=== PATIENT | male | born 1950 | race Caucasian/White ===

== ENCOUNTER 2019-08-15 09:49 | Observation (INO) | payer MEDICARE ==
[2019-08-15 10:13] LABS: ABS Eosinophils 0.1 10^3/ul (0-0.6); ABS Lymphocytes 2.1 10^3/ul (1.0-4.8); ABS Monocytes 0.7 10^3/ul (0-0.8); ABS Neutrophils 2.2 10^3/ul (1.5-7.7); Eosinophil % 2.5 %; Hematocrit 43 % (42-52); Hemoglobin 14.9 g/dL (14.0-18.0); Lymphocyte % 41.4 %; Mean Corpuscular HGB Conc 35 g/dL (31-36); Mean Corpuscular Hemoglobin 31 pg (27-31); Mean Corpuscular Volume 91 fL (80-94); Mean Platelet Volume 9.2 fL (7.4-10.4); Nucleated Red Blood Cells % 0.1; Platelet Count 177 10^3/uL (150-450); Red Blood Count 4.76 10^6 /uL (4.18-5.48); Red Cell Distribution Width 14 % (10-15); White Blood Count 5.2 10^3/uL (3.5-10.8)
[2019-08-15 10:32] LABS: Albumin 4.4 g/dL (3.2-5.2); Albumin/Globulin Ratio 2.2 (1-3); BUN/Creatinine Ratio 16.8 (8-20); Calcium 9.4 mg/dL (8.6-10.3); EGFR African American 94.8 (>60); EGFR Non-African American 78.4 (>60); Potassium 4.2 mmol/L (3.5-5.0); Total Bilirubin 0.7 mg/dL (0.2-1.0); Total Protein 6.4 g/dL (6.4-8.9)
[2019-08-15 10:34] LABS: Troponin I 0.01 ng/mL (<0.04)
[2019-08-15 10:43] LABS: INR 0.95 (0.82-1.09)
--- NOTE | 2019-08-15 10:59 | ED ---
HPI Chest Pain - HPI Summary HPI Summary: Pt is a 69 y/o M presenting to the ED with a chief complaint of chest pain initially onset in the middle of the night. He states he was having a dream that someone was breaking into his house, and a door was slammed into his chest. He was woken up by this sudden pressure on his chest. He fell back asleep , and later in the morning around 0730 when he was going up stairs, he experienced leg weakness, lightheadedness, dizziness, more SOB than usual, and slight anxiety on the way here. He denies diaphoresis, abd pain, N/V. He notes he has been more fatigued than usual when doing winter prep and he has noticed more leg cramping than usual. He also notes that he took two regular ASA this morning and increased recent stress from a lawsuit he is involved in. - History of Current Complaint Chief Complaint: EDChestPainROMI Time Seen by Provider: 08/15/19 10:11 Hx Obtained From: Patient Onset/Duration: Started Hours Ago, Still Present Timing: Constant, Lasting Hours Initial Severity: Moderate Current Severity: Mild Pain Intensity: 2 Pain Scale Used: 0-10 Numeric Chest Pain Location: Diffuse Chest Pain Radiates: No Character: Pressure/Squeezing Aggravating Factor(s): Nothing Alleviating Factor(s): Nothing Associated Signs and Symptoms: Positive: Chest Pain, Anxiety, Recent Stress, Weakness, Dizziness, Shortness of Breath, Lightheadedness. Negative: Diaphoresis, Nausea, Abdominal Pain, Vomiting Related History: Obesity - Allergy/Home Medications Allergies/Adverse Reactions: Allergies Allergy/AdvReac Type Severity Reaction Status Date / Time No Known Allergies Allergy Verified 08/15/19 09:57 Home Medications: Home Medications Carvedilol TAB* [Coreg TAB*] 25 mg PO BID 08/15/19 [History Confirmed 08/15/19] Levothyroxine TAB* [Synthroid TAB*] 50 mcg PO BID 08/15/19 [History Confirmed ] Thyroid TAB* [Thyroid TAB 30 MG*] 30 mg PO BID 08/15/19 [History Confirmed 08/15] metFORMIN* [Glucophage 500 MG TAB *] 500 mg PO BID 08/15/19 [History Confirmed 08/15/19] PMH/Surg Hx/FS Hx/Imm Hx Previously Healthy: Yes Endocrine/Hematology History: Reports: Hx Diabetes - NIDDM, Hx Thyroid Disease Cardiovascular History: Reports: Hx Hypercholesterolemia, Hx Hypertension GI History: Reports: Other GI Disorders - hernia surg in past - Surgical History Surgery Procedure, Year, and Place: HERNIA SURGERY RIGHT SIDE - AGE 42014 Infectious Disease History: No Infectious Disease History: Denies: Traveled Outside the [place] in Last 30 Days - Family History Known Family History: Negative: Renal Disease - Social History Alcohol Use: None Hx Substance Use: No Substance Use Type: Reports: None Hx Tobacco Use: Yes Smoking Status (MU): Former Smoker - 40+ yrs ago Review of Systems Positive: Fatigue. Negative: Skin Diaphoresis Positive: Chest Pain Positive: Shortness Of Breath Negative: Abdominal Pain, Vomiting, Nausea Neurological: Other - lightheadedness, dizziness Positive: Weakness Positive: Anxious All Other Systems Reviewed And Are Negative: Yes Physical Exam - Summary Physical Exam Summary: Constitutional: Well-developed, obese, Alert. (-) Distressed Skin: Warm, Dry HENT: Normocephalic; Atraumatic Eyes: Conjunctiva normal Neck: Musculoskeletal ROM normal neck. (-) JVD, (-) Stridor, (-) Tracheal deviation Cardio: Rhythm regular, rate normal, Heart sounds normal; Intact distal pulses; The pedal pulses are 2+ and symmetric. Radial pulses are 2+ and symmetric. Pulmonary/Chest wall: Effort normal. (-) Respiratory distress, (-) Wheezes, (-) Rales Abd: Soft, (-) tenderness, (-) Distension, (-) Guarding, (-) Rebound Musculoskeletal: (-) Edema Neuro: Alert, Oriented x3 Psych: Mood and affect Normal Triage Information Reviewed: Yes Vital Signs On Initial Exam: Initial Vitals Temp Pulse Resp BP Pulse Ox 97.7 F 69 20 131/84 98 08/15/19 09:54 08/15/19 09:54 08/15/19 09:54 08/15/19 09:54 08/15/19 09:54 Vital Signs Reviewed: Yes Procedures - Sedation Patient Received Moderate/Deep Sedation with Procedure: No Diagnostics - Vital Signs Vital Signs Temp Pulse Resp BP Pulse Ox 08/15/19 10:05 67 13 115/84 96 08/15/19 10:03 67 96 08/15/19 09:54 97.7 F 69 20 131/84 98 - Laboratory Lab Results: Lab Results 08/15/19 08/15/19 08/15/19 Range/Units 10:04 10:05 10:05 WBC 5.2 (3.5-10.8) 10^3/uL RBC 4.76 (4.18-5.48) 10^6 /uL Hgb 14.9 (14.0-18.0) g/dL Hct 43 (42-52) % MCV 91 (80-94) fL MCH 31 (27-31) pg MCHC 35 (31-36) g/dL RDW 14 (10-15) % Plt Count 177 (150-450) 10^3/uL MPV 9.2 (7.4-10.4) fL Neut % (Auto) 43.0 % Lymph % (Auto) 41.4 % [place] % (Auto) 12.7 % Eos % (Auto) 2.5 % Baso % (Auto) 0.4 % Absolute Neuts (auto) 2.2 (1.5-7.7) 10^3/ul Absolute Lymphs (auto) 2.1 (1.0-4.8) 10^3/ul Absolute Monos (auto) 0.7 (0-0.8) 10^3/ul Absolute Eos (auto) 0.1 (0-0.6) 10^3/ul Absolute Basos (auto) 0.0 (0-0.2) 10^3/ul Absolute Nucleated RBC 0.0 10^3/ul Nucleated RBC % 0.1 INR (Anticoag Therapy) 0.95 (0.82-1.09) Sodium 139 (135-145) mmol/L Potassium 4.2 (3.5-5.0) mmol/L Chloride 103 (101-111) mmol/L Carbon Dioxide 29 (22-32) mmol/L Anion Gap 7 (2-11) mmol/L BUN 16 (6-24) mg/dL Creatinine 0.95 (0.67-1.17) mg/dL Est GFR ( Amer) 94.8 (>60) Est GFR (Non-Af Amer) 78.4 (>60) BUN/Creatinine Ratio 16.8 (8-20) Glucose 192 H (70-100) mg/dL Calcium 9.4 (8.6-10.3) mg/dL Total Bilirubin 0.70 (0.2-1.0) mg/dL AST 21 (13-39) U/L ALT 43 (7-52) U/L Alkaline Phosphatase 74 (34-104) U/L Troponin I 0.01 (<0.04) ng/mL Total Protein 6.4 (6.4-8.9) g/dL Albumin 4.4 (3.2-5.2) g/dL Globulin 2.0 (2-4) g/dL Albumin/Globulin Ratio 2.2 (1-3) Result Diagrams: 08/15/19 10:04 08/15/19 10:05 Lab Statement: Any lab studies that have been ordered have been reviewed, and results considered in the medical decision making process. - Radiology CXR Radiology Interpretation Completed By: Radiologist Summary of Radiographic Findings: HYPERINFLATION, CONSISTENT WITH COPD. NO ACTIVE CARDIOPULMONARY DISEASE. ED physician has reviewed this report. - EKG 0949 Cardiac Rate: NL - 66bpm EKG Rhythm: Sinus Rhythm ST Segment: Normal Ectopy: None Summary of EKG Findings: EKG at 0949 shows NSR at 66bpm with no STEMI. ED physician has reviewed and interpreted this report. Chest Pain Course/Dx - Course Course Of Treatment: Pt is a 69 y/o M presenting to the ED with a chief complaint of chest pain initially onset in the middle of the night. He was woken up by this sudden pressure on his chest. He fell back asleep, and later in the morning around 0730 when he was going up stairs, he experienced leg weakness, lightheadedness, dizziness, more SOB than usual, and slight anxiety on the way here. He denies diaphoresis, abd pain, N/V. He notes he has been more fatigued than usual when doing winter prep and he has noticed more leg cramping than usual. He also notes that he took two regular ASA this morning and increased recent stress from a lawsuit he is involved in. Pt is obese on physical exam, otherwise nml. EKG at 0949 shows NSR at 66bpm with no STEMI. Pt 's first troponin is 0.01. CXR shows: HYPERINFLATION, CONSISTENT WITH COPD. NO ACTIVE CARDIOPULMONARY DISEASE. Pt's blood glucose is 192. I spoke with Dr. Sosa at 1206 who will be admitting the [place] [facility] [place] dx of [place]. - Diagnoses Provider Diagnoses: Chest pain - Provider Notifications Discussed Care Of Patient With: Huy Sosa Time Discussed With Above Provider: 12:06 Instructed by Provider To: Admit As Inpatient Discharge ED - Sign-Out/Discharge Documenting (check all that apply): Patient Departure - Discharge Plan Condition: Stable Disposition: ADMITTED TO [facility] - Billing Disposition and Condition Condition: STABLE Disposition: Admitted to [facility] - Attestation Statements Document Initiated by Scribe: Yes Documenting Scribe: Nivia Cooper Provider For Whom Kiley is Documenting (Include Credential): Baltazar Clements MD. Scribe Attestation: INivia, scribed for Baltazar Clements MD. on 08/15/19 at 1848. Scribe Documentation Reviewed: Yes Provider Attestation: The documentation as recorded by the [email or web address] accurately reflects the service I personally performed and the decisions made by me, Baltzaar Clements MD. Status of Scribe Document: Viewed Consult Consult: 1206 - I spoke with Dr. Sosa who will be evaluating the pt for admission [place] [facility]
[2019-08-15] MEDS ORDERED: Acetaminophen TAB* 325 MG PO PRN (12:44)
[2019-08-15] MEDS ORDERED: Dextrose 50% VIAL 50 ml IV PUSH PRN (12:44)
[2019-08-15] MEDS ORDERED: Ondansetron INJ* 2 MG/ML VIAL IV PRN (12:44)
--- NOTE | 2019-08-15 13:46 | HP ---
CC: Dr. Merrick Max HISTORY AND PHYSICAL: DATE OF ADMISSION: 08/15/19 PRIMARY CARE PROVIDER: Dr. Merrick Max. CHIEF COMPLAINT: Chest pain. HISTORY OF PRESENTING ILLNESS: This is a 69-year-old male with a past medical history of diabetes type 2, hypothyroidism, hypertension, who now presents to the emergency room because of chest pain. The patient reports that when he was sleeping, he felt he was in an intense dream where he felt like someone was in the house, the electricity was off and there were burglars in the house who got him. Then, when he woke up, he felt as if he had an intense chest pain that lasted few seconds, described as 10/10 chest pain. This was associated with palpitations, diaphoresis. He felt at that same point some shortness of breath , diaphoresis, weakness. There was no nausea, no vomiting. The symptoms lasted for about 4 to 5 seconds, symptoms resolved on their own. Since then, he does feel as if he is slightly weak and lightheaded. He reports that he is having increased amount of stress lately in his life because he is involved in a lawsuit. The patient took aspirin 325 mg tablets 2 tablets prior to coming to the emergency room. The patient has been taking aspirin 325 mg for the past week and a half because of headache as well as left shoulder pain. PAST MEDICAL HISTORY: 1. Diabetes type 2. 2. Hypothyroidism. 3. Hypertension. PAST SURGICAL HISTORY: Hernia repair. HOME MEDICATIONS: Include: 1. Levothyroxine 50 mcg b.i.d. 2. Metformin 500 mg b.i.d. 3. Amlodipine 5 mg b.i.d. 4. Carvedilol 3.125 mg b.i.d. 5. [place] Thyroid 30 mg b.i.d. 6. Lisinopril 20 mg b.i.d. ALLERGIES: No known drug allergies. FAMILY HISTORY: Mother: Lived to age 86, secondary to pneumonia. She also has a history of breast cancer and hyperlipidemia. Father: Stroke. SOCIAL HISTORY: Lives at home with his , Helga. Former smoker, quit about 40 years ago. Minimal alcohol use. REVIEW OF SYSTEMS: The patient has been having occasional headache and left shoulder pain for the past week. Otherwise, a full review of systems was done and is negative, otherwise listed in the HPI. The patient also reports that there was no radiation of the chest pain. PHYSICAL EXAMINATION GENERAL: This is an obese elderly male, lying in an ER stretcher, in no acute distress, well developed, well nourished. VITAL SIGNS: Blood pressure is 123/80, heart rate of 60, respiratory rate of 15 , oxygenation is 96% on room air, temperature of 97.7. HEENT: Pupils are equal, round, and reactive to light. Atraumatic, normocephalic. There is no oropharyngeal erythema. There is no carotid bruit. There is no cervical lymphadenopathy. LUNGS: There is no tachypnea, no use of accessory muscles. Lungs are clear to auscultation without any wheezing, rales, or rhonchi. HEART: There is no chest wall tenderness. Regular rate and rhythm. No murmurs. ABDOMEN: Bowel sounds are normoactive in all 4 quadrants. Abdomen is soft, nontender, nondistended. EXTREMITIES: There is no lower extremity edema, no calf tenderness. NEUROLOGICAL: Alert and oriented x3 with no focal neurological deficits. SKIN: There are no rashes or lesions. DIAGNOSTIC STUDIES/LAB DATA: White count of 5.2, hemoglobin 14.9, hematocrit 43, platelets of 177. INR of 0.95. Sodium 139, potassium 4.2, chloride 103, bicarb 29, BUN 16, creatinine of 0.95, glucose of 192. Alkaline phosphatase of 74. Troponin of 0.01. Albumin of 4.4. The patient also underwent a chest x-ray, which revealed hyperinflation consistent with COPD. There is no active cardiopulmonary disease. EKG shows normal sinus rhythm at a heart rate of 60 with incomplete right bundle - branch block. There is no acute ST elevations or ST depressions noted, there is no EKG available for prior comparison. IMPRESSION AND PLAN: 1. Chest pain: The patient does have risk factors for heart disease, which includes hypertension, diabetes. At this point, we will put the patient under observation, check a second and third troponin, risk stratify the patient with checking of hemoglobin A1c as well as a lipid profile, Check a nuclear stress test tomorrow, the patient reports that he would be unable to walk or run on a treadmill at this point. Continue daily aspirin 325 mg. Check second and third troponin, place the patient on telemetry, check an EKG tomorrow morning. 2. Type 2 diabetes. Continue metformin from home dose. Check hemoglobin A1c. Place on consistent carb diet. Start insulin sliding scale for mealtime coverage. 3. History of hypothyroidism: Check a TSH. Continue the patient's home regimen which is levothyroxine 50 mcg b.i.d. as well as [place] Thyroid 30 mg b.i.d. I discussed with the patient and at bedside regarding unusual dosing. The patient stated this is how his doctor has recommended to take it. 4. Hypertension: Continue amlodipine as well as carvedilol as well as lisinopril from home dose. Monitor the patient's vital signs in the hospital. 5. DVT prophylaxis: The patient is high risk for DVT. We will start the patient on heparin 5000 units subcu b.i.d. 6. Advance care directives. The patient is full code. Healthcare proxy is Helga, phone number is [phone]. Additional management and plan as the hospital course progresses. [id number]/[facility] #: [id number] MTDD
--- NOTE | 2019-08-15 14:53 | PN ---
Hospitalist Progress Note Date of Service: 08/15/19 TSH is 0.02, he has history of hypothyroidism. He is on levothyroxine 50mg BID, and thyroid tabs 30mg BID. At this point will discontinue levothyroxine and thyroid tabs. Obtain TSH and T3, T4 levels tomorrow morning and then determine what dosage to start. Discussed with patient, no history of thyroid cancer, no history of thyroid surgery, or goiter.
[2019-08-15] MEDS: Insulin LISPRO* 1 UNITS UNIT SUBCUT SCH (17:40)
[2019-08-15] MEDS: metFORMIN* 500 MG TAB PO SCH (17:41)
[2019-08-15] MEDS: Lisinopril TAB* 10 MG PO SCH (20:43)
[2019-08-15] MEDS: amLODIPine TAB* 5 MG PO SCH (20:43)
[2019-08-15] MEDS: Carvedilol TAB* 25 MG PO SCH (20:43)
[2019-08-15] MEDS: Heparin VIAL(*) 5000 UNITS/ML VIAL (FIVE THOUSAND) SUBCUT SCH (20:43)
[2019-08-15] MEDS ORDERED: Levothyroxine TAB* 50 MCG TAB PO SCH (21:00)
[2019-08-15] MEDS ORDERED: Carvedilol TAB* 3.125 MG PO SCH (21:00)
[2019-08-15] MEDS ORDERED: Thyroid TAB* 30 MG PO SCH (21:00)
[2019-08-15] MEDS ORDERED: Metformin ER (NF) 500 MG TAB PO SCH (21:00)
[2019-08-15] MEDS ORDERED: Melatonin 3 MG TAB PO SCH (21:00)
[2019-08-16] MEDS: Insulin LISPRO* 1 UNITS UNIT SUBCUT SCH ×2 (08:05→11:52)
[2019-08-16 08:30] LABS: Calcium 9.3 mg/dL (8.6-10.3); Potassium 4.3 mmol/L (3.5-5.0)
[2019-08-16 08:36] LABS: BUN/Creatinine Ratio 16.3 (8-20); EGFR African American 91.5 (>60); EGFR Non-African American 75.6 (>60); HDL Cholesterol 43.2 mg/dL
[2019-08-16] MEDS ORDERED: Aminophylline IV* 25 MG/ML 10 ML VIAL ONE (08:56)
[2019-08-16] MEDS ORDERED: Regadenoson* 0.4 MG/5 ML SYRINGE ONE (08:56)
[2019-08-16 08:59] LABS: TSH (Thyroid Stimulating Horm) 0.04 mcIU/mL (0.34-5.60)
[2019-08-16] MEDS ORDERED: Aspirin TAB* 325 MG PO SCH (09:00)
[2019-08-16 09:01] LABS: Free T4 0.81 ng/dL (0.61-1.12)
[2019-08-16] MEDS: Lisinopril TAB* 10 MG PO SCH (11:35)
[2019-08-16] MEDS: metFORMIN* 500 MG TAB PO SCH (11:36)
[2019-08-16] MEDS: amLODIPine TAB* 5 MG PO SCH (11:36)
[2019-08-16] MEDS: Carvedilol TAB* 25 MG PO SCH (11:37)
[2019-08-16] MEDS: Heparin VIAL(*) 5000 UNITS/ML VIAL (FIVE THOUSAND) SUBCUT SCH (11:37)
[2019-08-16 12:11] VITALS: BP 126/81
--- NOTE | 2019-08-17 00:56 | DS ---
CC: Dr. Max * DISCHARGE SUMMARY: DATE OF ADMISSION: 08/15/19 DATE OF DISCHARGE: 08/16/19 PRIMARY CARE PROVIDER: Dr. Max. PRINCIPAL DIAGNOSIS: Noncardiac chest pain. SECONDARY DIAGNOSES: 1. Type 2 diabetes. 2. Hypothyroidism. 3. Hypertension. DISCHARGE MEDICATIONS: 1. Coreg 25 mg p.o. b.i.d. 2. Metformin 500 mg p.o. b.i.d. 3. Synthroid 50 mcg p.o. b.i.d. 4. Amlodipine 5 mg p.o. b.i.d. 5. [place] Thyroid 30 mg p.o. b.i.d. 6. Lisinopril 20 mg p.o. b.i.d. HOSPITAL COURSE: Mr. Beauchamp is a 69-year-old obese male with history of hypertension and type 2 diabetes, who presented to the emergency room on , with complaints of a very vivid dream where he had severe chest pain. Per the H and P, chest pain occurred when the patient woke up from the dream; however, per the patient on the day of discharge, he did not in fact have chest pain when he woke up but was so scared by the dream and had pain in the dream that he felt he needed to be evaluated. Due to his cardiac risk factors, the patient was admitted and ruled out for an acute coronary syndrome. He underwent a nuclear stress test on the day of discharge which revealed possible small apical infarct versus apical thinning. This was felt to be a low-risk stress test. At this point, the patient was felt to be stable for discharge to home. It was noted that his hemoglobin A1 has increased over the last several months. He agrees to work on diet and exercise. PHYSICAL EXAMINATION: On the day of discharge, the patient was awake, alert, and oriented, sitting up in bed, in no acute distress. Cardiac exam reveals normal S1 and S2 with regular rate and rhythm. Lungs are clear. Abdomen is soft, nontender, nondistended. Musculoskeletal: The patient moves all 4 extremities symmetrically. Skin: Visible areas of skin are warm, dry, and without rash. FOLLOWUP CONCERNS: The patient is being discharged to home today, 08/16/19. ACTIVITY LEVEL: As tolerated. DIET: Heart healthy, diabetic. CONDITION ON DISCHARGE: Stable. FOLLOWUP: The patient to follow up with Dr. Max in the next 4 to 7 days. TIME SPENT: Twenty-five minutes was spent discharging the patient. [id number]/[facility] #: [id number] FER
== END 2019-08-16 13:10 | disposition home or self-care (01) ==
LOC: ED 09:49 → MEDTELE 12:30
PROVIDERS: ADMIT Internal Medicine; ATTEND Hospitalist
DX: R07.89 Other chest pain (principal); E11.9 Type 2 diabetes mellitus without complications; E03.9 Hypothyroidism, unspecified; I10 Essential (primary) hypertension; Z79.899 Other long term (current) drug therapy; E66.9 Obesity, unspecified
CPT/HCPCS: 36415; 71046; 78452; 80048; 80053; 80061; 83036; 84439; 84443; 84484; 85025; 85610; 93005; 93017; 96372; 99284; A9270-GY; A9502; G0378; J0280; J1644; J2785